=== PATIENT | female | born 1990 | race Caucasian/White ===

== ENCOUNTER 2017-05-01 09:37 | Inpatient (IN) | payer BC ==
[~2017-05-01 09:37] MED LIST: Glycopyrrolate 0.2 MG/ML 5 ML SYRINGE ONE; Lidocaine 1% PF 5 ML VIAL ONE; Ondansetron HCl/PF 4 MG/2 ML Vial ONE; PHENYLEPHRINE-NS 100 MCG/ML 10 ML SYRINGE ONE; PROPOFOL 200 MG/20 ML VIAL ONE; ePHEDrine/0.9% NaCl/PF SYRINGE 50 mg/10 ml ONE
[2017-05-01] MEDS ORDERED: CEFAZOLIN/Water 2 GM/20 ML SYRINGE ONE (10:04)
[2017-05-01] MEDS ORDERED: Ketorolac Tromethamine 30 MG/ML VIAL ONE (10:04)
[2017-05-01 10:20] LABS: #Basophils 0.1 thou/uL (0.0-0.2); #Eosinphils 0.4 thou/uL (0.0-0.7); #Lymphocytes 2.7 thou/uL (1.20-3.40); #Monocytes 0.4 thou/uL (0.11-0.59); #Neutrophils 3.3 thou/uL (1.40-6.50); %Basophils 1.2 % (0.0-1.0); %Eosinophils 5.6 % (0.0-10.0); %Lymphocytes 39.4 % (21.0-51.0); %Monocytes 6.3 % (0.0-10.0); %Neutrophils 47.4 % (42.0-75.0); Hemoglobin 13.9 g/dL (12.0-16.0); Mean Corpuscular HGB CONC 33.8 g/dL (32.0-36.0); Mean Corpuscular Volume 91.7 fl (81.0-99.0); Mean Platelet Volume 6.9 fL (7.4-10.4); Platelet Count 316 thou/uL (130-400); RBC Distribution Width 11.1 % (11.5-14.5); Red Blood Cell (RBC) Count 4.49 mill/uL (4.20-5.40); White Blood Cell (WBC) Count 6.9 thou/uL (4.8-10.8)
[2017-05-01 10:24] LABS: BHCG - Serum Negative (NEGATIVE); Pregs Control Background? CLEAR/WHITE (CLR/WHITE); Pregs Control Bar Appear? YES (CONTROL BAR)
[2017-05-01] MEDS ORDERED: Midazolam HCl 2 mg/2 ml Vial ONE (10:31)
[2017-05-01 10:40] LABS: Anion Gap 13 mmol/L (10-20); BUN (Urea Nitrogen) 14 mg/dL (7.0-18.7); Calc. Creatinine Clearance 125 mL/min (70-130); Calcium 9.1 mg/dL (7.8-10.44); Carbon Dioxide 26 mmol/L (22-29); Chloride 101 mmol/L (98-107); Estimated GFR-MDRD 73; Glucose 380 mg/dL (70-105); Potassium 4.5 mmol/L (3.5-5.1); Sodium 135 mmol/L (136-145)
[2017-05-01] MEDS ORDERED: Insulin Regular 300 UNITS/3 ML VIAL ONE (11:19)
[2017-05-01] MEDS ORDERED: Ondansetron HCl/PF 4 MG/2 ML Vial ONE (11:32)
[2017-05-01] MEDS ORDERED: Fentanyl 250 MCG/5 ML VIAL ONE ×2 (11:32→14:21)
[2017-05-01] MEDS ORDERED: Dextrose 50% Abboject 50 ML SYRINGE ONE (14:43)
[2017-05-01] MEDS ORDERED: Promethazine HCl 25 MG/ML VIAL ONE (15:54)
[2017-05-01] MEDS ORDERED: Meperidine HCl/PF 25 MG/ML VIAL SLOW IVP PRN (16:09)
[2017-05-01] MEDS ORDERED: Ondansetron HCl/PF 4 MG/2 ML Vial IVP PRN ×2 (16:09→17:49)
[2017-05-01] MEDS ORDERED: Promethazine HCl 25 MG/ML VIAL SLOW IVP PRN (16:09)
[2017-05-01] MEDS ORDERED: Promethazine HCl 25 MG/ML VIAL IM PRN ×2 (16:09→17:49)
[2017-05-01] MEDS ORDERED: Morphine 4 MG/ML VIAL ONE (16:40)
[2017-05-01] MEDS ORDERED: hydrALAZINE 20 MG/ML VIAL SLOW IVP PRN (17:49)
[2017-05-01] MEDS ORDERED: Morphine 4 MG/ML VIAL SLOW IVP PRN ×2 (17:49)
[2017-05-01] MEDS ORDERED: Dextrose 5% in Water 1,000 ML IV PRN (17:49)
[2017-05-01] MEDS ORDERED: Dextrose 50% Abboject 50 ML SYRINGE SLOW IVP PRN (17:49)
[2017-05-01] MEDS ORDERED: HYDROcodone/Acetaminophen 7.5/325 mg Tablet PO PRN ×2 (17:49)
[2017-05-01 18:33] VITALS: BMI 31.6
[2017-05-01] MEDS: Lactated Ringer's 1,000 ML IV SCH ×2 (18:54→23:09)
[2017-05-01] MEDS: Docusate 100 MG CAP PO SCH (20:55)
[2017-05-01] MEDS: Famotidine 20 MG TAB PO SCH (20:55)
[2017-05-02 04:32] LABS: #Basophils 0.1 thou/uL (0.0-0.2); #Eosinphils 0.1 thou/uL (0.0-0.7); #Lymphocytes 2.3 thou/uL (1.20-3.40); #Monocytes 0.6 thou/uL (0.11-0.59); #Neutrophils 5.4 thou/uL (1.40-6.50); %Basophils 0.7 % (0.0-1.0); %Lymphocytes 26.8 % (21.0-51.0); %Monocytes 7.3 % (0.0-10.0); %Neutrophils 64.3 % (42.0-75.0); Hemoglobin 9.8 g/dL (12.0-16.0); Mean Corpuscular HGB CONC 32.9 g/dL (32.0-36.0); Mean Corpuscular Hemoglobin 30.9 pg (27.0-31.0); Mean Platelet Volume 6.9 fL (7.4-10.4); Platelet Count 241 thou/uL (130-400); RBC Distribution Width 11.1 % (11.5-14.5); Red Blood Cell (RBC) Count 3.17 mill/uL (4.20-5.40); White Blood Cell (WBC) Count 8.4 thou/uL (4.8-10.8)
[2017-05-02 09:00] VITALS: BP 106/66; TEMP 97.7
[2017-05-02] MEDS: Docusate 100 MG CAP PO SCH (09:21)
[2017-05-02] MEDS: Famotidine 20 MG TAB PO SCH (09:21)
--- NOTE | 2017-05-03 15:47 | OP ---
DATE OF PROCEDURE: 05/01/2017 PREOPERATIVE DIAGNOSIS: Genetic predisposition to breast cancer (BRCA positive). POSTOPERATIVE DIAGNOSIS: Genetic predisposition to breast cancer (BRCA positive). OPERATION PERFORMED: Bilateral nipple-sparing mastectomy. SURGEON: Dr. Luis Breen. ANESTHESIA: General endotracheal. INDICATIONS: The patient is a 26-year-old white female. She was recognized to have the BRCA genetic mutation showed has had breast cancer in her sister. She presents at this time for bilateral proph ylactic mastectomy. There was no evidence of any concerning abnormality on recent breast MRI. DESCRIPTION OF OPERATION: Informed consent was obtained. The patient was taken to the operating arie m where general endotracheal anesthesia was obtained with the patient in supine position. Bilateral breasts, axillae, chest wall were prepped with ChloraPrep and draped in sterile fashion. Attention w as turned first to the right breast. The inframammary crease had been marked preoperatively. Beginn ing 8 cm from midline, I created an 11 cm incision within the inframammary crease. Dissection was ca rried through skin and subcutaneous tissue. Dissection was then carried down through the fatty tissu e inferior to the breast down to the muscular fascia. Breast was then dissected off the chest wall f ascia using plasma blade dissection along the entire posterior aspect of the breast. The margins of the anticipated breast dissection were marked on the skin and I used this as a template for posterior dissection. After completing this, a careful dissection in the anterior aspect of the breast was carried out agai n using the plasma blade. Attempts were made to leave adequate subcutaneous fat to ensure flap viabi lity. Dissection was carried out along the usual mastectomy margins, to the lateral border of the st ernum to the infraclavicular chest wall and laterally to the area of lateral breast fullness. The gl andular tissue as it entered the nipple areolar complex was transected. Specimens were removed from within the chest wall and tagged for orientation and submitted to pathology. Meticulous hemostasis o btained with electrocautery. The wound was thoroughly irrigated with saline and all irrigant was asp irated. A #19 round fluted drain was brought out laterally and inferiorly and secured with 3-0 nylon suture. The incision was closed with 3-0 and 4-0 Monocryl. Dermabond was placed externally. A Teg aderm dressing was applied over the drain exit site as well as over the nipple to keep its orientatio n centered. A mirror image procedure was performed in an identical fashion on the left breast. After both incisions have been closed and sealed and 4 Tegaderms have been applied, patient was eleva nu and a dressing was applied using fluffed gauze dressing and 6-inch circumferential Kain wrap. The re were no complications. Patient tolerated the procedure well and was taken to the recovery room in stable condition.
== END 2017-05-02 11:55 | disposition home or self-care (01) | DRG 585 ==
LOC: SDC 09:37 → SURG A 17:56
PROVIDERS: ADMIT Specialist; ATTEND Specialist
PROC: 0HTV0ZZ Resection of Bilateral Breast, Open Approach (ICD-10-PCS; principal; 2017-05-01)
DX: Z40.01 Encounter for prophylactic removal of breast (principal); E10.40 Type 1 diabetes mellitus with diabetic neuropathy, unspecified; Z15.01 Genetic susceptibility to malignant neoplasm of breast; Z80.3 Family history of malignant neoplasm of breast; Z87.891 Personal history of nicotine dependence; Z79.4 Long term (current) use of insulin; Z79.82 Long term (current) use of aspirin; Z88.2 Allergy status to sulfonamides
CPT/HCPCS: 36415; 36416; 80048; 84703; 85025; 88307; 96374; J0131; J1815; J1885; J2001; J2250; J2270; J2405; J2550; J2704; J3010

== ENCOUNTER 2017-07-21 11:24 | Day surgery (SDC) | payer BC ==
[2017-07-21] MEDS ORDERED: PROPOFOL 200 MG/20 ML VIAL ONE ×2 (11:30→11:59)
[2017-07-21] MEDS ORDERED: ePHEDrine/0.9% NaCl/PF SYRINGE 50 mg/10 ml ONE ×2 (11:30→11:59)
[2017-07-21] MEDS ORDERED: Lidocaine 1% PF 5 ML VIAL ONE ×2 (11:30→11:59)
[2017-07-21] MEDS ORDERED: Ondansetron HCl/PF 4 MG/2 ML Vial ONE ×2 (11:30→11:59)
[2017-07-21] MEDS ORDERED: Heparin 5,000 UNITS/ML VIAL ONE (12:12)
[2017-07-21] MEDS ORDERED: CEFAZOLIN/Water 2 GM/20 ML SYRINGE ONE (12:12)
[2017-07-21] MEDS ORDERED: Bupivacaine/Epinephrine 0.25% 30 ML VIAL ONE (13:10)
[2017-07-21] MEDS ORDERED: Gentamicin 80 MG/2 ML VIAL ONE (13:10)
[2017-07-21] MEDS ORDERED: Sodium Chloride 0.9% 10 ML ONE (13:10)
[2017-07-21] MEDS ORDERED: Midazolam HCl 2 mg/2 ml Vial ONE (13:13)
[2017-07-21] MEDS ORDERED: Fentanyl 250 MCG/5 ML VIAL ONE (13:13)
[2017-07-21] MEDS ORDERED: Fentanyl 100 MCG/2 ML VIAL ONE ×2 (16:16→16:44)
[2017-07-21] MEDS ORDERED: Morphine 4 MG/ML VIAL ONE ×2 (17:37→17:56)
[2017-07-21] MEDS ORDERED: HYDROcodone/Acetaminophen 5/325 mg Tablet ONE (18:42)
[2017-07-21] MEDS ORDERED: Promethazine HCl 25 MG/ML VIAL ONE (18:43)
--- NOTE | 2017-07-22 07:33 | OP ---
DATE OF PROCEDURE: 07/21/2017 PREOPERATIVE DIAGNOSES: Status post bilateral mastectomy, genetic susceptibility to breast cancer. POSTOPERATIVE DIAGNOSIS: Status post bilateral mastectomy. PROCEDURE: Bilateral placement of tissue expanders (42243.50). SURGEON: Dr. Alexander Hirsch OPERATIVE FINDINGS: Left breast tissue printing shop supervisor, reference #[id number], serial [id number], filled to a volume of 650 mL, right breast tissue printing shop supervisor everything the same except serial number [id number]). PROCEDURE: Following the induction of adequate anesthesia, the patient was prepped and draped in the usual sterile fashion in supine position. The existing inframammary crease scar was incised. Disse ction was carried sharply down through the subcutaneous tissue to identify the pectoralis muscle, whi ch was incised. Subsequently, an adequate submuscular pocket was created with release of the inferio r attachments of the pectoralis major muscle. The pocket was copiously irrigated with dilute antibio tic solution and dilute Betadine solution prior to placement of the above tissue printing shop supervisor after a bar rier dressing was placed. The incision was closed with interrupted 3-0 PDS suture and 3-0 Monocryl s uture prior to inflation of the printing shop supervisor percutaneously to a volume of 650 mL. A similar procedure was done on each side. The patient tolerated the procedure well.
== END 2017-07-21 21:00 | disposition home or self-care (01) ==
LOC: SDC 11:24
PROVIDERS: ATTEND Plastic Surgery
PROC: 0HHV0NZ Insertion of Tissue Expander into Bilateral Breast, Open Approach (ICD-10-PCS; principal; 2017-07-21)
DX: Z42.1 Encounter for breast reconstruction following mastectomy (principal); Z15.01 Genetic susceptibility to malignant neoplasm of breast; E11.9 Type 2 diabetes mellitus without complications; Z88.2 Allergy status to sulfonamides; Z79.4 Long term (current) use of insulin
CPT/HCPCS: 36416; 96374; 96375; A4216; J1580; J1644; J2001; J2250; J2270; J2405; J2550; J2704; J3010; J3370; J3490

== ENCOUNTER 2017-12-22 08:11 | Day surgery (SDC) | payer BC ==
[2017-12-22] MEDS ORDERED: Bupivacaine/Epinephrine 0.25% 30 ML VIAL ONE ×2 (08:28→09:11)
[2017-12-22] MEDS ORDERED: Fentanyl 100 MCG/2 ML VIAL ONE ×3 (08:46→11:50)
--- NOTE | 2017-12-22 12:12 | OP ---
DATE OF PROCEDURE: 12/22/2017 PREOPERATIVE DIAGNOSES: 1. Status post mastectomy. 2. Status post bilateral tissue cable splicer helper placement. PROCEDURES: 1. A bilateral exchange of tissue cable splicer helper for permanent breast prosthesis with capsular work (66233 .50). 2. Left internal Vinayak flap 3 x 10 cm (30691). 3. Bilateral fat grafting (75467.52). OPERATIVE FINDINGS: 1. Left breast implant, [place] ultra-high profile, reference [id number], serial number [id number]. 2. Right breast implant, [place] ultra-high profile, reference [id number], serial number [id number]. PROCEDURE IN DETAIL: Following induction of adequate anesthesia, the patient was prepped and draped in the usual sterile fashion in the supine position. On the right side, dissection was carried sharp ly down through the existing inframammary crease scar to the underlying capsule, which was incised. The cable splicer helper was removed. The pocket was then elevated from 2 o'clock to 12 o'clock to 10 o'clock. Also, radial cuts were performed to further allow for the pocket to open. The pocket was copiously i rrigated and inspected for meticulous hemostasis prior to placing a skin barrier, donning new gloves and placing an 800 mL [place] ultra-high profile implant. The pocket was then closed with 3-0 PDS sut ure and 3-0 Monocryl suture. Attention was turned to the left breast. Similar procedure was done except with much more extensive radial capsulotomies. The capsulotomies were more extensive due to the fact that I was elevating the patient's crease and thus moving the pockets further superior than it was with the cable splicer helper. The ca psule was then elevated inferiorly off the chest wall for approximately creating a 3 cm flap to eleva te the inframammary crease. The crease was then recreated with by suturing the inferior skin flap an d down at Dayanna's fascia level to the crease. The internal component of the capsular flap was then reflected superiorly. The implant was placed in a similar fashion as described above with jodie lar closure being done. Attention was then turned to the fat grafting. The abdomen was then infiltrated and fat was harveste d with a mucus trap. The medial portion of each breast was then injected using a microdroplet techni que. This was done through a single sternal stab incision. Approximately 40 mL of fat was injected bilaterally. The patient tolerated the procedure well.
[2017-12-22] MEDS ORDERED: HYDROcodone/Acetaminophen 5/325 mg Tablet ONE (13:28)
== END 2017-12-22 13:59 | disposition home or self-care (01) ==
LOC: SDC 08:11
PROVIDERS: ATTEND Plastic Surgery
PROC: 0HPU0NZ Removal of Tissue Expander from Left Breast, Open Approach (ICD-10-PCS; principal; 2017-12-22)
PROC: 0HRV0JZ Replacement of Bilateral Breast with Synthetic Substitute, Open Approach (ICD-10-PCS; principal; 2017-12-22)
PROC: 0H0V37Z Alteration of Bilateral Breast with Autologous Tissue Substitute, Percutaneous Approach (ICD-10-PCS; principal; 2017-12-22)
PROC: 0HPT0NZ Removal of Tissue Expander from Right Breast, Open Approach (ICD-10-PCS; principal; 2017-12-22)
DX: Z45.812 Encounter for adjustment or removal of left breast implant (principal); Z45.811 Encounter for adjustment or removal of right breast implant; E11.9 Type 2 diabetes mellitus without complications; E66.3 Overweight; Z68.31 Body mass index [BMI] 31.0-31.9, adult; Z87.891 Personal history of nicotine dependence; Z79.4 Long term (current) use of insulin; Z88.2 Allergy status to sulfonamides; Z91.040 Latex allergy status; Z15.01 Genetic susceptibility to malignant neoplasm of breast; Z90.13 Acquired absence of bilateral breasts and nipples
CPT/HCPCS: 36416; 96374; J0131; J3010

== ENCOUNTER 2023-06-17 06:18 | Day surgery (SDC) | payer OTHER ==
[2023-06-12 09:28] VITALS: BMI 29.7
== END 2023-06-17 10:00 | disposition home or self-care (01) ==
LOC: SDC 06:18
PROVIDERS: ATTEND Specialist
PROC: 0HBT0ZZ Excision of Right Breast, Open Approach (ICD-10-PCS; principal; 2023-06-17)
DX: N60.31 Fibrosclerosis of right breast (principal); E10.40 Type 1 diabetes mellitus with diabetic neuropathy, unspecified; Z79.4 Long term (current) use of insulin; Z79.899 Other long term (current) drug therapy; Z88.2 Allergy status to sulfonamides; Z91.040 Latex allergy status; Z98.890 Other specified postprocedural states; Z87.891 Personal history of nicotine dependence
CPT/HCPCS: 36416; 88305; C1713; J0171; J0665; J1885; J2250; J2405; J2704; J3490